=== PATIENT | male | born 1955 | race Caucasian/White ===

== ENCOUNTER → 2020-10-11 08:58 | Outpatient (BNVA) | payer MEDICAID, SELFPAY | PROVIDERS: Visit Provider Internal Medicine Cardiovascular Disease | DX: R00.2 Palpitations (principal); I20.8 Other forms of angina pectoris; I25.2 Old myocardial infarction; Z98.61 Coronary angioplasty status | CPT/HCPCS: 99212 ==

== ENCOUNTER 2020-10-30 10:01 | Emergency (ER) | payer MEDICAID, SELFPAY ==
--- NOTE | 2020-10-30 10:10 | ECG_ITS ---
Test Reason : SYNCOPE Blood Pressure : / mmHG Vent. Rate : 072 BPM Atrial Rate : 072 BPM P-R Int : 192 ms QRS Dur : 096 ms QT Int : 386 ms P-R-T Axes : 045 -08 093 degrees QTc Int : 422 ms Normal sinus rhythm T wave abnormality, consider lateral ischemia Abnormal ECG No previous ECGs available Referred By: Cammie Ballard Electronically Signed By:SHEILA CARTER
--- NOTE | 2020-10-30 10:10 | CT_ITS ---
EXAMINATION: CT BRAIN AND CHEST. CLINICAL INFORMATION: Weakness. COMPARISON: None TECHNIQUE: Chest one view. 5 mm thin axial and reformatted 2 mm thin coronal and sagittal images of brain were obtained. The elbow the sixth 97 FINDINGS: Chest: The lungs are well-expanded and clear of acute process. The heart size and pulmonary vascularity is normal. No gross bony abnormality seen. Brain: There is no acute intra-axial, extra-axial bleed, masses or midline shift. Both lateral ventricles are symmetrical in size and configuration without enlargement. There is no acute infarction in evolution. A small lacunar infarct RIGHT blayne. The lateral ventricles are symmetrical in size, configuration without enlargement. Bone windows reveal no calvarial abnormality. Bilateral paranasal sinuses and mastoid air cells are well-aerated. CT/CT head/brain wo con IMPRESSION: No acute cardiopulmonary process. There is no acute intracranial process seen.
[2020-10-30 10:11] VITALS: BP 126/85; PULSE 74; RESP 10; TEMP 36.8; O2SAT 99; BMI 33.0
--- NOTE | 2020-10-30 10:11 | ED_ITS ---
HPI - Dizziness General Chief Complaint: Headache Stated Complaint: HBS Time Seen by Provider: 10/30/20 10:08 Source: patient and old records reviewed Mode of arrival: other (from cardiac rehab) Limitations: other (very poor historian) History of Present Illness HPI Narrative: patient is DM and did not eat breakfast - his BS was 170 on arrival to the ED MD elicited complaint: dizziness, lightheadedness and other (headache) Onset (ago): minute(s) (just [employer]) Timing: sudden onset Severity: severe Description: room spinning Context: other (was using bike at cardiac rehab) History of similar symptoms: No Exacerbating factors: movement/ambulation and change in body position Relieving factors: remaining still Associated symptoms: nausea, diaphoresis and weakness Related Data Home Medications Medication Instructions Recorded Confirmed amlodipine 5 mg tablet 5 mg PO DAILY 10/11/20 aspirin 81 mg tablet,delayed 81 mg PO DAILY 10/11/20 release atorvastatin 80 mg tablet 80 mg PO DAILY 10/11/20 hydrochlorothiazide 25 mg tablet 25 mg PO DAILY 10/11/20 lisinopril 40 mg tablet 40 mg PO DAILY 10/11/20 metformin 500 mg tablet 500 mg PO DAILY 10/11/20 metoprolol tartrate 100 mg tablet 100 mg PO BID 10/11/20 ticagrelor 90 mg tablet 90 mg PO BID 10/11/20 Allergies Allergy/AdvReac Type Severity Reaction Status Date / Time No Known Allergies Allergy Verified 10/30/20 10:08 Review of Systems Review of Systems: Constitutional : No Fever, No Chills, No Fatigue ENT/Mouth : No sore throat, No Rhinorrhea Eyes: No Eye Pain, No Swelling, No Redness Cardiovascular : No Chest Pain, No SOB, No Dyspnea on Exertion Respiratory : No Cough, No Sputum Gastrointestinal : pos Nausea, No Vomiting, No Diarrhea, No abdominal Pain Genitourinary : No Dysuria, No Urinary Frequency, No Hematuria, Musculoskeletal : No joint pain, No Myalgias, No Joint Swelling Skin : No Skin Lesions, No rash Neuro : No Weakness, No Numbness, pos Dizziness, positive Headache Psych : No Anxiety/Panic, No Depression Heme/Lymph: No Bruising, No Bleeding,No Lymphadenopathy Endocrine : No Polyuria, No Polydipsia All other systems reviewed and are negative PMFSH Past Medical History Attestation statement: The following information was validated with the patient. Medical History ST elevation myocardial infarction (STEMI) of lateral wall Surgical History History of cardiac cath Social History Social History Alcohol intake: never Smoking Status: Never smoker Use of substances other than those prescribed or required for medical reasons: No Advance Directives: Yes Advance Directives on File: Yes Advance Directives Date on File: 08/30/20 Physical Exam Vital Signs: Vital Signs: Last Vital Signs Temp 98.2 F 10/30/20 10:11 Pulse 80 10/30/20 14:00 Resp 14 10/30/20 14:00 BP 126/80 10/30/20 12:12 Pulse Ox 99 10/30/20 14:00 Body Mass Index 33.0 Appearance: Alert. Oriented X3. No acute distress. Eyes: Pupils equal, round and reactive to light. ENT: Pharynx normal. Neck: Normal inspection. Neck supple. CVS: Normal heart rate and rhythm. Pulses normal. Respiratory: No respiratory distress. Breath sounds normal. Abdomen: Soft and nontender. Skin: Skin warm and dry. Normal skin color. Normal skin turgor. Extremities: No lower extremity edema. No calf ttp Neuro: Oriented X 3. No motor deficit. No sensory deficit. CN intact, no drift, dizziness with rotating head but no overt nystagmus NIH Stroke Scale Internal: Initial- Upon Arrival Level of Consciousness: Alert Level of Consciousness Questions: Answers both questions correctly Level of Consciousness Commands: Performs both tasks correctly Best Gaze: Normal Visual: No visual loss Facial Palsy: Normal Motor Arm (Right): No drift Motor Arm (Left): No drift Motor Leg (Right): No drift Motor Leg (Left): No drift Limb Ataxia: Absent Sensory: Normal Best Language: No aphasia Dysarthia: Normal Extinction and Inattention: No abnormality Score: 0 Course Course Course Narrative: 1015am call to [facility] [facility] for old EKG and records from [facility] on repeat exam - flat affect, slow to respond at times but alert and oriented x 3, has neg romberg's test, can do heel to mcmanus bilaterally and walking in a straight line but would occasionally list to the right at times, will need MRI brain to r/o stroke, his score is so low he would not be a candidate for tPa negative, MRI back to baseline, GCS 15 feels fine, discussed with Cardiology reviewed trop and EKGs, stable for DC< patient reports episode resolved, plan for outpatient cardiology follow up MDM - Dizziness MDM Narrative Medical decision making narrative: 65 yo male with DM, CAD s/p stent 5 months ago here with abrupt onset dizziness with room spinning and headache no CP/SOB no focal deficits at this time will need labs, IV zofran, EKG, records from [facility], CT head, dispo per results and findings Lab Data Result diagrams: 10/30/20 10:24 10/30/20 10:24 Labs: Lab Results 10/30/20 10/30/20 10/30/20 Range/Units 10:05 10:24 10:24 WBC 5.5 (4.8-10.8) X10*3/uL RBC 4.58 L (4.60-5.80) X10*6/uL Hgb 13.4 L (14.0-18.0) g/dl Hct 40.7 L (42-52) % MCV 88.9 (80-98) fL MCH 29.3 (27.0-33.0) pg MCHC 32.9 (31.0-36.0) g/dl RDW 14.5 (11.0-16.0) % Plt Count 239 (160-400) X10*3/uL MPV 10.2 (9.4-12.4) fL Immature Gran % (Auto) 0.4 (0.0-0.4) % Neut % (Auto) 64.1 (45-73) % Lymph % (Auto) 26.9 (20-40) % [place] % (Auto) 7.3 (2-11) % Eos % (Auto) 0.9 (0-4) % Baso % (Auto) 0.4 (0-2) % Lymph # (Auto) 1.5 (1.2-4.9) X10*3/uL [place] # (Auto) 0.4 (0.1-1.2) X10*3/uL Eos # (Auto) 0.1 (0.0-0.4) X10*3/uL Baso # (Auto) 0.0 (0.0-0.2) X10*3/uL Abs Immat Gran (auto) 0.02 (0.00-0.03) X10*3/uL Absolute Neuts (auto) 3.5 (2.0-8.3) X10*3/uL Absolute Nucleated RBC 0.000 (0.0-0.012) X10*3/uL Nucleated RBC % (auto) 0.0 (0.0-0.2) /100WBC Sodium 139 (135-145) mmol/L Potassium 3.5 (3.3-5.1) mmol/l Chloride 103 (96-108) mmol/L Carbon Dioxide 25 (22-29) mmol/L Anion Gap 15 (12-20) BUN 16 (9-16) mg/dL Creatinine 1.03 (0.5-1.4) mg/dL Estim Creat Clear Calc 76.2 Estimated GFR > 60 POC Glucose 176 H (60-115) mg/dL Random Glucose 216 H (60-115) mg/dL Calcium 8.8 (8.4-10.2) mg/dL Magnesium 2.0 (1.6-2.6) mg/dL Total Bilirubin 1.0 (0.0-1.0) mg/dL Direct Bilirubin 0.5 (0.0-0.5) mg/dL AST 12 (5-37) U/L ALT 18 (0-40) U/L Alkaline Phosphatase 91 (39-117) U/L Troponin I High Sens (<3.5-35.0) ng/L Total Protein 7.4 (6.5-8.0) g/dL Albumin 4.1 (3.5-5.0) g/dL Lipase 27 (8-78) U/L 10/30/20 10/30/20 Range/Units 10:24 13:24 WBC (4.8-10.8) X10*3/uL RBC (4.60-5.80) X10*6/uL Hgb (14.0-18.0) g/dl Hct (42-52) % MCV (80-98) fL MCH (27.0-33.0) pg MCHC (31.0-36.0) g/dl RDW (11.0-16.0) % Plt Count (160-400) X10*3/uL MPV (9.4-12.4) fL Immature Gran % (Auto) (0.0-0.4) % Neut % (Auto) (45-73) % Lymph % (Auto) (20-40) % [place] % (Auto) (2-11) % Eos % (Auto) (0-4) % Baso % (Auto) (0-2) % Lymph # (Auto) (1.2-4.9) X10*3/uL [place] # (Auto) (0.1-1.2) X10*3/uL Eos # (Auto) (0.0-0.4) X10*3/uL Baso # (Auto) (0.0-0.2) X10*3/uL Abs Immat Gran (auto) (0.00-0.03) X10*3/uL Absolute Neuts (auto) (2.0-8.3) X10*3/uL Absolute Nucleated RBC (0.0-0.012) X10*3/uL Nucleated RBC % (auto) (0.0-0.2) /100WBC Sodium (135-145) mmol/L Potassium (3.3-5.1) mmol/l Chloride (96-108) mmol/L Carbon Dioxide (22-29) mmol/L Anion Gap (12-20) BUN (9-16) mg/dL Creatinine (0.5-1.4) mg/dL Estim Creat Clear Calc Estimated GFR POC Glucose (60-115) mg/dL Random Glucose (60-115) mg/dL Calcium (8.4-10.2) mg/dL Magnesium (1.6-2.6) mg/dL Total Bilirubin (0.0-1.0) mg/dL Direct Bilirubin (0.0-0.5) mg/dL AST (5-37) U/L ALT (0-40) U/L Alkaline Phosphatase (39-117) U/L Troponin I High Sens < 3.5 5.9 D (<3.5-35.0) ng/L Total Protein (6.5-8.0) g/dL Albumin (3.5-5.0) g/dL Lipase (8-78) U/L ECG Data Attestation: I personally reviewed and interpreted this ECG as follows: ECG interpretation date: 10/30/20 ECG interpretation time: 10:22 Interpretation: Rate: 72 Rhythm: NSR [place]: left Normal P waves. Normal JUSTINE. Normal QRS complex. ST T wave : no TITO, inverted in I and aVL, V5-V6 qTC: normal prior studies: unchanged March 2020 The study has been interpreted contemporaneously by me. Discharge Plan Discharge Clinical Impression: Dizziness, Headache Patient Disposition: Home, Self-Care Instructions: Dizziness (ED), Acute Headache (ED) Additional Instructions: return to ED for any worsening symptoms or concerns Prescriptions: No Action amlodipine 5 mg tablet 5 mg PO DAILY RF: 0 lisinopril 40 mg tablet 40 mg PO DAILY RF: 0 metformin 500 mg tablet 500 mg PO DAILY RF: 0 aspirin 81 mg tablet,delayed release (DR/EC) 81 mg PO DAILY RF: 0 atorvastatin 80 mg tablet 80 mg PO DAILY RF: 0 metoprolol tartrate 100 mg tablet 100 mg PO BID RF: 0 hydrochlorothiazide 25 mg tablet 25 mg PO DAILY RF: 0 Brilinta 90 mg tablet 90 mg PO BID RF: 0 Referrals: Christiano López MD [Physician] - 2 days Print Language: [place]
[2020-10-30 10:32] LABS: MANUAL DIFF FLAG NO
[2020-10-30 10:35] LABS: Basophils Percent Auto 0.4 % (0-2); Eosinophils Absolute Auto 0.1 X10*3/uL (0.0-0.4); Eosinophils Percent Auto 0.9 % (0-4); Hematocrit 40.7 % (42-52); Hemoglobin 13.4 g/dl (14.0-18.0); Imm Gran Abs Auto 0.02 X10*3/uL (0.00-0.03); Imm Gran Pct Auto 0.4 % (0.0-0.4); Lymphocytes Absolute Auto 1.5 X10*3/uL (1.2-4.9); Lymphocytes Percent Auto 26.9 % (20-40); Mean Corpuscular HGB Conc 32.9 g/dl (31.0-36.0); Mean Corpuscular Hemoglobin 29.3 pg (27.0-33.0); Mean Corpuscular Volume 88.9 fL (80-98); Mean Platelet Volume 10.2 fL (9.4-12.4); Monocytes Absolute Auto 0.4 X10*3/uL (0.1-1.2); Monocytes Percent Auto 7.3 % (2-11); Neutrophils Absolute Auto 3.5 X10*3/uL (2.0-8.3); Neutrophils Percent Auto 64.1 % (45-73); Platelet Count 239 X10*3/uL (160-400); Red Blood Count 4.58 X10*6/uL (4.60-5.80); Red Cell Distribution Width 14.5 % (11.0-16.0); White Blood Count 5.5 X10*3/uL (4.8-10.8)
[2020-10-30] MEDS: ondansetron HCL 4 MG/2 ML VIAL IVPUSH (10:36)
[2020-10-30] MEDS: 0.9 % Sodium Chloride 500 ML IV (10:36)
[2020-10-30 10:58] LABS: Carbon Dioxide 25 mmol/L (22-29); Chloride 103 mmol/L (96-108); Potassium 3.5 mmol/l (3.3-5.1); Sodium 139 mmol/L (135-145)
[2020-10-30 10:59] LABS: Alanine Aminotransferase 18 U/L (0-40); Albumin Level 4.1 g/dL (3.5-5.0); Alkaline Phosphatase 91 U/L (39-117); Anion Gap 15 (12-20); Aspartate Amino Transferase 12 U/L (5-37); Bilirubin Direct 0.5 mg/dL (0.0-0.5); Blood Urea Nitrogen 16 mg/dL (9-16); Calcium 8.8 mg/dL (8.4-10.2); Creatinine Clr Calc Pharmacy 76.2; Estimated Glomerular Filt Rate > 60; Glucose Random 216 mg/dL (60-115); Lipase 27 U/L (8-78); Total Protein 7.4 g/dL (6.5-8.0)
--- NOTE | 2020-10-30 11:01 | MR_ITS ---
EXAMINATION: MR BRAIN WITHOUT CONTRAST CLINICAL INFORMATION: Weakness. Dizziness. COMPARISON: None. TECHNIQUE: Multiplanar, multisequence imaging of the brain was performed without contrast. FINDINGS: No diffusion abnormalities are identified to suggest an acute infarct. The ventricles are normal in size. No mass effect or midline shift is seen. No extra-axial fluid collections are seen. There are a couple of chronic infarcts in the right gangliocapsular region and inferiorly in the left cerebellar hemisphere. Mild chronic white matter microangiopathic changes noted. There is symmetric T2 hyperintensity in the middle cerebellar peduncles bilaterally. Small chronic lacunar infarcts noted in the dorsal right paramedian aspect of the blayne. There is chronic cortically-based infarct in the right anterior temporal pole. The gradient refocused acquisition demonstrates no pathologic magnetic susceptibility artifact to indicate underlying acute or chronic blood products. The craniovertebral junction, marrow signal, and midline structures are normal. The major intracranial flow voids at the level of the lower [place] of [place] are preserved. The dural venous sinus flow voids are maintained. The mastoid air cells are well aerated. There is a small retention cyst along the floor of the left maxillary sinus. MR/MR head/brain wo con IMPRESSION: Symmetric signal changes in the middle cerebellar peduncles bilaterally without volume loss in the brainstem or cerebellum. Given the presence of a chronic pontine lacunar infarct, findings may represent chronic [place] degeneration. Otherwise, no acute intracranial process. Mild chronic white matter microangiopathy and scattered small chronic infarct.
--- NOTE | 2020-10-30 11:11 | PC.NURSE ---
pt able to trial ambulate w standby assist w steady gait. plan for mri. screening form completed at bedside.
[2020-10-30 11:34] LABS: Glucose, Whole Blood 176 mg/dL (60-115)
--- NOTE | 2020-10-30 11:35 | PC.NURSE ---
taken to mri via stretcher
[2020-10-30 12:12] VITALS: BP 126/80; PULSE 76; RESP 16; O2SAT 99
--- NOTE | 2020-10-30 12:17 | PC.NURSE ---
pt return from mri, vss. awaiting mri results. pt nad lying in stretcher.
[2020-10-30 12:23] LABS: Troponin-I High Sensitivity < 3.5 ng/L (<3.5-35.0)
[2020-10-30 14:00] VITALS: PULSE 80; RESP 14; O2SAT 99
--- NOTE | 2020-10-30 14:00 | PC.NURSE ---
pt family updated in waiting room, pt is resting in stretcher nad. awaiting repeat trop.
[2020-10-30 14:15] LABS: Troponin-I High Sensitivity 5.9 ng/L (<3.5-35.0)
== END 2020-10-30 15:20 | disposition home or self-care (01) ==
PROVIDERS: Emergency Provider Emergency Medicine
DX: R42 Dizziness and giddiness (principal); R51.9 Headache, unspecified; E11.9 Type 2 diabetes mellitus without complications; Z79.84 Long term (current) use of oral hypoglycemic drugs
CPT/HCPCS: 36415; 70450; 70551; 71045; 80048; 80076; 82947; 83690; 83735; 84484; 85025; 93005; 96361; 96374; 99284; 99285; J2405

== ENCOUNTER → 2020-11-07 14:00 | Outpatient (REF) | payer MEDICAID, SELFPAY ==
--- NOTE | 2020-11-07 13:55 | ECG_ITS ---
Hook-up date: 2020-11-07 14:20:00 Duration: 47:59:00 Test Indications: PALPITATIONS Medications: [id number] QRS complexes 2649 Ventricular ectopics which represent 1 % of total QRS comp. 116 Supraventricular ectopics which represent <1 % of total QRS comp. * Paced QRS complexs which represent % of total QRS comp. VENTRICULAR ECTOPY 2593 Isolated 1202 Bigeminal Cycles 24 Couplets 2 Runs 8 Beats in Runs 5 Beats LONGEST at 106 BPM at 13:30:04 2020-11-09 3 Beats FASTEST at 141 BPM at 12:11:18 2020-11-09 SUPRAVENTRICULAR ECTOPY 66 Isolated 8 Couplets 7 Runs 34 Beats in Runs 11 Beats LONGEST at 106 BPM at 06:06:36 2020-11-09 7 Beats FASTEST at 110 BPM at 06:06:31 2020-11-09 HEART RATES * MIN at 03:33:91 -- 80 AVG 127 MAX at 08:30:31 2020-11-09 LONGEST RR 0.8560 secs at 15:26:15 2020-11-07 S-T LEVELS Channel 1 - 128 mm at 14:20:00 2020-11-07 - 128 mm at 14:20:00 2020-11-07 Channel 2 - 128 mm at 14:20:00 2020-11-07 - 128 mm at 14:20:00 2020-11-07 Channel 3 - 128 mm at 03:33:91 -- - 128 mm at 03:33:91 Underlying rhythm is sinus; Average ventricular rate 80/min; Mostly isolated ventricular ectopy with some couplets, bigeminal cycles but no significant runs (1%); Rare supraventricular ectopy with some brief runs; No sustained arrhythmias; Patient did not report any symptoms in the diary Referred By: Christiano López Overread By: SHEILA CARTER
== END ==
LOC: HO.CARD 14:00
PROVIDERS: Visit Provider Internal Medicine Cardiovascular Disease
DX: R00.2 Palpitations (principal)
CPT/HCPCS: 93226

== ENCOUNTER 2021-01-15 09:55 | Emergency (ER) | payer MEDICAID, SELFPAY ==
--- NOTE | ~2021-01-15 | CT_ITS ---
EXAMINATION: CT ABDOMEN AND PELVIS WITHOUT CONTRAST CLINICAL INFORMATION: Left suprapubic pain with question of kidney stone. COMPARISON: None TECHNIQUE: Multidetector volumetric imaging was performed from the superior aspect of the liver through the pubic symphysis. Sagittal and coronal reformatted images were obtained on the technologist's workstation. This CT examination was performed using dose optimization techniques as appropriate, variously including the following: *Automated exposure control *Adjustment of mA and/or kV according to patient size (this includes techniques or standardized protocols for targeted exams where dose is matched to indication/reason for exam; i.e. extremities or head) *Use of iterative reconstruction technique DLP: 697 mGy-cm FINDINGS: LUNG BASES: The visualized lung bases are unremarkable. Some nonspecific dependent mosaic ground-glass changes are present. LIVER, GALLBLADDER, AND BILIARY TREE: The liver is normal in size, shape, and attenuation. No focal hepatic lesion or biliary ductal dilatation is present. Gallbladder contour is irregular and the gallbladder contains some inhomogeneous material. I suspect that the gallbladder contains multiple stones but there is no gallbladder wall thickening, or obvious pericholecystic inflammatory changes. PANCREAS: Unremarkable. SPLEEN: Unremarkable. ADRENAL GLANDS: Unremarkable. KIDNEYS AND URETERS: The kidneys are normal in size, shape, and attenuation. No hydronephrosis, hydroureter, or calculi seen. There is a right upper pole 2.2 cm benign simple cyst present. No solid renal masses are seen. No perinephric stranding. BLADDER: Unremarkable. GASTROINTESTINAL TRACT: The small and large bowel are unremarkable. The appendix is unremarkable. ABDOMINAL WALL: No significant hernia is appreciated. There is a tiny periumbilical hernia containing only fat. LYMPH NODES: Some small left para-aortic lymph nodes are present. No retroperitoneal lymphadenopathy is seen. VASCULAR: Calcific atherosclerotic changes present in the aorta and iliac vessels. No aneurysm is seen. PELVIC VISCERA: There is BPH. The seminal vesicles appear normal. OSSEOUS STRUCTURES: There has been prior spine surgery with pedicular screws at L5-S1 with associated grade 2 anterolisthesis of L5 upon S1. CT/CT abdomen pelvis wo con IMPRESSION: 1. A cause for the suprapubic pain has not been found. 2. Abnormal gallbladder. Ultrasound should be performed for further evaluation. 3. BPH. 4. Benign right renal cyst. 5. Grade 2 anterolisthesis L5 upon S1 status post prior fixation.
[2021-01-15 10:26] VITALS: BP 154/96; PULSE 73; RESP 15; TEMP 36.6; O2SAT 99; BMI 30.4
[2021-01-15 15:42] VITALS: BP 143/94; PULSE 71; RESP 18; TEMP 36.9; O2SAT 98
[2021-01-15] MEDS: 0.9 % Sodium Chloride 1,000 ML 999 ML IV (15:59)
--- NOTE | 2021-01-15 16:00 | PC.NURSE ---
Pt's bladder scanned for 150. He voided 100ml and then was scanned for a PVR of 24. Even after emptying his bladder he c/o pain to his lower abd/pelvis region with palpation. PA aware. IV started and IVF infusing.
[2021-01-15 16:06] LABS: MANUAL DIFF FLAG NO
[2021-01-15 16:07] LABS: Basophils Percent Auto 0.5 % (0-2); Eosinophils Absolute Auto 0.1 X10*3/uL (0.0-0.4); Eosinophils Percent Auto 1.3 % (0-4); Hematocrit 42.4 % (42-52); Imm Gran Abs Auto 0.02 X10*3/uL (0.00-0.03); Imm Gran Pct Auto 0.3 % (0.0-0.4); Lymphocytes Percent Auto 32.2 % (20-40); Mean Corpuscular Hemoglobin 29.2 pg (27.0-33.0); Mean Corpuscular Volume 88.3 fL (80-98); Mean Platelet Volume 10.5 fL (9.4-12.4); Monocytes Absolute Auto 0.6 X10*3/uL (0.1-1.2); Monocytes Percent Auto 8.9 % (2-11); Neutrophils Absolute Auto 3.5 X10*3/uL (2.0-8.3); Neutrophils Percent Auto 56.8 % (45-73); Platelet Count 234 X10*3/uL (160-400); Red Cell Distribution Width 13.4 % (11.0-16.0); White Blood Count 6.2 X10*3/uL (4.8-10.8)
[2021-01-15 16:09] LABS: Glucose Urine UA 250 MG/DL (NEG); Leukocyte Esterase Urine TRACE (NEG); Nitrite Urine POS (NEG); PH 5.5 (5.0-8.0); Specific Gravity - Urine >= 1.030 (1.005-1.025); UACC Culture Trigger YES; Urine Blood TRACE (NEG); Urine Ketones NEG (NEG); Urine Protein NEG (NEG-TRACE)
[2021-01-15 16:13] LABS: Appearance Urine CLOUDY; Color Urine YELLOW
[2021-01-15 16:16] LABS: Prothrombin Time 12.2 SEC (10.8-13.0)
[2021-01-15 16:19] LABS: Partial Thromboplastin Time 32.2 SEC (24.1-38.0)
[2021-01-15 16:28] LABS: Bacteria Urine 4+ /LPF; Mucus Urine 2+ /LPF; Squamous Epithelial Cell Urine 1+ /LPF; WBC Urine TNTC /HPF (0-4)
--- NOTE | 2021-01-15 16:34 | ED_ITS ---
HPI - Abdominal Pain General Chief Complaint: Abdominal Pain Stated Complaint: urinary incontinence,abd pain Time Seen by Provider: 01/15/21 15:28 Source: patient Mode of arrival: ambulatory History of Present Illness HPI narrative: Patient presents to ED for left suprapubic pain for 1 week and 2 episodes of urinary incontinence that occurred 2 days ago. Patient states 2 days ago he felt the urge to urinate and while he running to the bathroom he urinated on himself. Patient states since then able to control his urine. Patient states also some dysuria. Patient denies any blood in urine. Patient states no fever, chills, lower back pain, bowel incontinence, or weakness or paralysis and lower extremities. MD elicited complaint: abdominal pain Related Data Home Medications Medication Instructions Recorded Confirmed amlodipine 5 mg tablet 5 mg PO DAILY 10/11/20 aspirin 81 mg tablet,delayed 81 mg PO DAILY 10/11/20 release atorvastatin 80 mg tablet 80 mg PO DAILY 10/11/20 hydrochlorothiazide 25 mg tablet 25 mg PO DAILY 10/11/20 lisinopril 40 mg tablet 40 mg PO DAILY 10/11/20 metformin 500 mg tablet 500 mg PO DAILY 10/11/20 metoprolol tartrate 100 mg tablet 100 mg PO BID 10/11/20 ticagrelor 90 mg tablet 90 mg PO BID 10/11/20 Previous Rx's Medication Instructions Recorded cefpodoxime 100 mg PO Q12H #14 tab 01/15/21 Allergies Allergy/AdvReac Type Severity Reaction Status Date / Time No Known Allergies Allergy Verified 01/15/21 17:57 Review of Systems Review of Systems Yes all other systems are reviewed and are negative Constitutional: Reports as per HPI and Reports no additional constitutional complaints Eyes: Reports as per HPI and Reports no additional eye complaints Reports system reviewed and no additional complaints, except as documented and Reports as per HPI Cardiovascular: Reports as per HPI and Reports no additional cardiovascular complaints Respiratory: Reports as per HPI and Reports no additional respiratory complaints Gastrointestinal: Reports as per HPI, Reports no additional gastrointestinal complaints and Reports abdominal pain (Left suprapubic abdominal pain) Genitourinary: Reports no additional male genitourinary complaints, Reports as per HPI, Reports dysuria and Reports urinary incontinence (Resolved) Musculoskeletal: Reports no additional musculoskeletal complaints, Reports as per HPI and Denies back pain Reports system reviewed and no additional complaints, except as documented and Reports as per HPI Psychiatric: Reports no additional psychiatric complaints and Reports as per HPI Physical Exam Vital Signs: Vital Signs: Last Vital Signs Temp 98.3 F 01/15/21 17:52 Pulse 78 01/15/21 20:02 Resp 20 01/15/21 20:02 BP 145/100 H 01/15/21 20:02 Pulse Ox 96 01/15/21 17:52 Body Mass Index 30.4 Const: General: cooperative, healthy appearing, comfortable, no acute distress, well developed, alert and awake Orientation/consciousness: patient oriented x3 HENMT: Head: Yes normal to inspection, Yes No palpable skull fracture present, Yes normocephalic, Yes atraumatic, No abrasion, No Fair's sign, No contusion, No cranial bruits, No hematoma, No laceration, No occipital foramen tenderness, No palpable skull fracture, No raccoon eyes, No scalp tenderness, No Temporal artery tenderness present and No periorbital ecchymosis Eyes: General: appearance normal, both eyes and all related structures Neck: Neck: Yes normal visual inspection, Yes full ROM, Yes no lymphadenopathy, Yes no meningeal signs, Yes trachea midline, Yes supple and No tender Chest: Chest palpation & inspection: normal inspection of the chest and normal palpation of entire chest wall Resp: Effort & Inspection: normal respiratory effort and able to speak in complete sentences Cardio: Jugular venous distension: no JVD Heart sounds: S1 normal heart sound present and S2 normal heart sound present GI: Inspection: Yes normal to inspection and No abdominal wall ecchymosis Palpation (GI): Soft to palpation, not firm, Tenderness to palpation present (GI) (Left suprapubic) in the LLQ, no guarding and not rigid : Other: Negative for any active urine from urethra. Negative for any penile lesions. Negative for any testicular pain redness, or testicular swelling. Patient has sensation in saddle area and perineum area.. Patient has good anal tone on rectal exam. General: No CVA tenderness and Yes no CVA tenderness Back/Spine/Pelvis: Back: no CVA tenderness, No CVA tenderness and No back tenderness Skin: General skin exam: no rashes or lesions noted and elasticity normal Neuro: Other: Complete range of motion of all extremities. Negative for any abnormal gait. Negative for any spine tenderness General: patient oriented x3, no meningeal signs and CN's II-XI intact bilaterally Extrem: General: Yes normal to inspection and Yes full ROM Psych: Appearance: grossly normal, well kempt and not disheveled Course Course Course Narrative: Physical exam does not indicate spinal cord compression. History physical exam indicate more UTI possible kidney stone. Patient had bladder scan, UA, and labs drawn Reevaluation(s) Reevaluation #1: Bladder scan: Initial bladder scan shows 150 mL. Postvoid all urine is 24 mL. UA shows a UTI. Will send patient for CT scan machine is no kidney stone Time: 16:51 Reevaluation #2: CT scan negative for any kidney stones or cholecystitis. CT scan shows possible gallstones, but negative for pericholecystic fluid or gallbladder wall thickening. Patient does not have any upper abdominal pain, nausea, or vomiting. Patient can follow-up with outpatient ultrasound for further evaluation of gallbladder. T bili, AST, and ALT came back normal. Patient will be discharged with antibiotics for UTI. Patient given copy of CT scan and UA for follow-up with PCP. Patient informed to return to the ED immediately if he has upper abdominal pain, right upper back pain, green emesis, right upper quadrant pain, fever, chills, hematuria, or any other concerning symptoms. Time: 19:29 MDM - Abdominal Pain MDM Narrative Medical decision making narrative: UTI Lab Data Result diagrams: 01/15/21 15:54 01/15/21 15:54 Labs: Lab Results 01/15/21 01/15/21 01/15/21 Range/Units 15:54 15:54 15:54 WBC 6.2 (4.8-10.8) X10*3/uL RBC 4.80 (4.60-5.80) X10*6/uL Hgb 14.0 (14.0-18.0) g/dl Hct 42.4 (42-52) % MCV 88.3 (80-98) fL MCH 29.2 (27.0-33.0) pg MCHC 33.0 (31.0-36.0) g/dl RDW 13.4 (11.0-16.0) % Plt Count 234 (160-400) X10*3/uL MPV 10.5 (9.4-12.4) fL Immature Gran % (Auto) 0.3 (0.0-0.4) % Neut % (Auto) 56.8 (45-73) % Lymph % (Auto) 32.2 (20-40) % [place] % (Auto) 8.9 (2-11) % Eos % (Auto) 1.3 (0-4) % Baso % (Auto) 0.5 (0-2) % Lymph # (Auto) 2.0 (1.2-4.9) X10*3/uL [place] # (Auto) 0.6 (0.1-1.2) X10*3/uL Eos # (Auto) 0.1 (0.0-0.4) X10*3/uL Baso # (Auto) 0.0 (0.0-0.2) X10*3/uL Abs Immat Gran (auto) 0.02 (0.00-0.03) X10*3/uL Absolute Neuts (auto) 3.5 (2.0-8.3) X10*3/uL Absolute Nucleated RBC 0.000 (0.0-0.012) X10*3/uL Nucleated RBC % (auto) 0.0 (0.0-0.2) /100WBC PT 12.2 (10.8-13.0) SEC INR 1.0 (0.9-1.1) APTT 32.2 (24.1-38.0) SEC Sodium 140 (135-145) mmol/L Potassium 4.3 (3.3-5.1) mmol/L Chloride 101 (96-108) mmol/L Carbon Dioxide 28 (22-29) mmol/L Anion Gap 15 (12-20) BUN 19 H (9-16) mg/dL Creatinine 1.01 (0.5-1.4) mg/dL Estim Creat Clear Calc 79.7 Estimated GFR > 60 Random Glucose 195 H (60-115) mg/dL Calcium 9.9 D (8.4-10.2) mg/dL Total Bilirubin 0.6 (0.0-1.0) mg/dL AST 17 D (5-37) U/L ALT 37 (0-40) U/L Alkaline Phosphatase 121 H D (39-117) U/L Total Protein 7.8 (6.5-8.0) g/dL Albumin 4.3 (3.5-5.0) g/dL Urine Color Urine Appearance Urine pH (5.0-8.0) Ur Specific [place] (1.005-1.025) Urine Protein (NEG-TRACE) MG/DL Urine Glucose (UA) (NEG) MG/DL Urine Ketones (NEG) MG/DL Urine Blood (NEG) Urine Nitrite (NEG) Ur Leukocyte Esterase (NEG) Urine RBC (0) /HPF Urine WBC (0-4) /HPF Ur Squamous Epith Cells /LPF Urine Bacteria /LPF Urine Mucus /LPF 01/15/21 Range/Units 15:54 WBC (4.8-10.8) X10*3/uL RBC (4.60-5.80) X10*6/uL Hgb (14.0-18.0) g/dl Hct (42-52) % MCV (80-98) fL MCH (27.0-33.0) pg MCHC (31.0-36.0) g/dl RDW (11.0-16.0) % Plt Count (160-400) X10*3/uL MPV (9.4-12.4) fL Immature Gran % (Auto) (0.0-0.4) % Neut % (Auto) (45-73) % Lymph % (Auto) (20-40) % [place] % (Auto) (2-11) % Eos % (Auto) (0-4) % Baso % (Auto) (0-2) % Lymph # (Auto) (1.2-4.9) X10*3/uL [place] # (Auto) (0.1-1.2) X10*3/uL Eos # (Auto) (0.0-0.4) X10*3/uL Baso # (Auto) (0.0-0.2) X10*3/uL Abs Immat Gran (auto) (0.00-0.03) X10*3/uL Absolute Neuts (auto) (2.0-8.3) X10*3/uL Absolute Nucleated RBC (0.0-0.012) X10*3/uL Nucleated RBC % (auto) (0.0-0.2) /100WBC PT (10.8-13.0) SEC INR (0.9-1.1) APTT (24.1-38.0) SEC Sodium (135-145) mmol/L Potassium (3.3-5.1) mmol/L Chloride (96-108) mmol/L Carbon Dioxide (22-29) mmol/L Anion Gap (12-20) BUN (9-16) mg/dL Creatinine (0.5-1.4) mg/dL Estim Creat Clear Calc Estimated GFR Random Glucose (60-115) mg/dL Calcium (8.4-10.2) mg/dL Total Bilirubin (0.0-1.0) mg/dL AST (5-37) U/L ALT (0-40) U/L Alkaline Phosphatase (39-117) U/L Total Protein (6.5-8.0) g/dL Albumin (3.5-5.0) g/dL Urine Color YELLOW Urine Appearance CLOUDY Urine pH 5.5 (5.0-8.0) Ur Specific [place] >= 1.030 H (1.005-1.025) Urine Protein NEG (NEG-TRACE) MG/DL Urine Glucose (UA) 250 H (NEG) MG/DL Urine Ketones NEG (NEG) MG/DL Urine Blood TRACE (NEG) Urine Nitrite POS H (NEG) Ur Leukocyte Esterase TRACE H (NEG) Urine RBC 1-4 (0) /HPF Urine WBC TNTC H (0-4) /HPF Ur Squamous Epith Cells 1+ /LPF Urine Bacteria 4+ /LPF Urine Mucus 2+ /LPF Discharge Plan Discharge Clinical Impression: Acute UTI Patient Disposition: Home, Self-Care Instructions: Urinary Tract Infection in Men (ED) Additional Instructions: Return to the ED immediately for any nausea, vomiting, worsening abdominal pain, right upper back pain, right upper quadrant pain, chest pain, shortness of breath, fever, chills, flank pain, gross hematuria, or any other concerning symptoms. Please follow-up with your PCP. Recommend outpatient gallbladder ultrasound. CT scan shows possible gallstones with no signs of cholecystitis Prescriptions: New cefpodoxime 100 mg tablet 100 mg PO Q12H Qty: 14 RF: 0 No Action amlodipine 5 mg tablet 5 mg PO DAILY RF: 0 lisinopril 40 mg tablet 40 mg PO DAILY RF: 0 metformin 500 mg tablet 500 mg PO DAILY RF: 0 aspirin 81 mg tablet,delayed release (DR/EC) 81 mg PO DAILY RF: 0 atorvastatin 80 mg tablet 80 mg PO DAILY RF: 0 metoprolol tartrate 100 mg tablet 100 mg PO BID RF: 0 hydrochlorothiazide 25 mg tablet 25 mg PO DAILY RF: 0 Brilinta 90 mg tablet 90 mg PO BID RF: 0 Print Language: [place] [facility] Past Medical History Medical History HTN (hypertension) IDDM (insulin dependent diabetes mellitus) ST elevation myocardial infarction (STEMI) of lateral wall Surgical History History of cardiac cath Social History Social History Alcohol intake: never Smoking Status: Never smoker Use of substances other than those prescribed or required for medical reasons: No Advance Directives: Yes Advance Directives on File: Yes Advance Directives Date on File: 08/30/20
[2021-01-15 16:49] LABS: Alanine Aminotransferase 37 U/L (0-40); Albumin Level 4.3 g/dL (3.5-5.0); Alkaline Phosphatase 121 U/L (39-117); Anion Gap 15 (12-20); Aspartate Amino Transferase 17 U/L (5-37); Bilirubin Total 0.6 mg/dL (0.0-1.0); Blood Urea Nitrogen 19 mg/dL (9-16); Calcium 9.9 mg/dL (8.4-10.2); Carbon Dioxide 28 mmol/L (22-29); Chloride 101 mmol/L (96-108); Creatinine Clr Calc Pharmacy 79.7; Estimated Glomerular Filt Rate > 60; Glucose Random 195 mg/dL (60-115); Potassium 4.3 mmol/L (3.3-5.1); Sodium 140 mmol/L (135-145); Total Protein 7.8 g/dL (6.5-8.0)
[2021-01-15 17:52] VITALS: BP 131/88; PULSE 70; RESP 18; TEMP 36.8; O2SAT 96
--- NOTE | 2021-01-15 18:10 | PC.NURSE ---
Spoke with daughter Trisha and gave her an update per request of the patient. Trisha [phone]
[2021-01-15 20:02] VITALS: BP 145/100; PULSE 78; RESP 20
== END 2021-01-15 20:08 | disposition home or self-care (01) ==
PROVIDERS: Physician Assistant; Emergency Provider Internal Medicine
DX: N39.0 Urinary tract infection, site not specified (principal); I10 Essential (primary) hypertension; E11.9 Type 2 diabetes mellitus without complications; I25.2 Old myocardial infarction; Z79.4 Long term (current) use of insulin; Z79.82 Long term (current) use of aspirin; Z79.899 Other long term (current) drug therapy
CPT/HCPCS: 36415; 51798; 74176; 80053; 81001; 81003; 85025; 85610; 85730; 87086; 87088; 87186; 96361; 96374; 99284

== ENCOUNTER 2021-02-02 09:05 | Outpatient (REF) | payer MEDICAID, SELFPAY ==
[2021-02-02 11:12] LABS: Hemoglobin 13.7 g/dl (14.0-18.0); Mean Corpuscular HGB Conc 32.6 g/dl (31.0-36.0); Mean Corpuscular Hemoglobin 28.7 pg (27.0-33.0); Mean Corpuscular Volume 88.1 fL (80-98); Mean Platelet Volume 10.7 fL (9.4-12.4); Platelet Count 241 X10*3/uL (160-400); Red Blood Count 4.77 X10*6/uL (4.60-5.80); Red Cell Distribution Width 13.2 % (11.0-16.0); White Blood Count 6.2 X10*3/uL (4.8-10.8)
[2021-02-02 11:22] LABS: Glucose Urine UA 500 MG/DL (NEG); Leukocyte Esterase Urine 1+ (NEG); Nitrite Urine POS (NEG); PH 5.5 (5.0-8.0); Specific Gravity - Urine >= 1.030 (1.005-1.025); Urine Blood 1+ (NEG); Urine Ketones NEG (NEG); Urine Protein TRACE MG/DL (NEG-TRACE)
[2021-02-02 11:25] LABS: Appearance Urine CLOUDY; Color Urine YELLOW
[2021-02-02 11:32] LABS: Bacteria Urine 3+ /LPF; Mucus Urine 1+ /LPF; Squamous Epithelial Cell Urine 1+ /LPF; WBC Urine TNTC /HPF (0-4)
[2021-02-02 11:39] LABS: Microalbum/Creatinine Ratio Ur 20.2 ug/mg cr
[2021-02-02 11:43] LABS: Alanine Aminotransferase 21 U/L (0-40); Albumin Level 4.2 g/dL (3.5-5.0); Alkaline Phosphatase 111 U/L (39-117); Anion Gap 13 (12-20); Aspartate Amino Transferase 12 U/L (5-37); Bilirubin Total 0.5 mg/dL (0.0-1.0); Blood Urea Nitrogen 15 mg/dL (9-16); Carbon Dioxide 28 mmol/L (22-29); Chloride 105 mmol/L (96-108); Cholesterol 119 mg/dL; Estimated Glomerular Filt Rate > 60; Glucose Fasting 236 mg/dL (60-99); HDL Cholesterol 36 mg/dL; LDL Cholesterol Calculated 69 mg/dl; Potassium 3.9 mmol/L (3.3-5.1); Sodium 142 mmol/L (135-145); Total Protein 7.5 g/dL (6.5-8.0); Triglycerides 73 mg/dL
[2021-02-02 11:46] LABS: Estimated Average Glucose 272 mg/dL; Hemoglobin A1c % 11.1 %
== END 2021-02-02 09:06 | disposition home or self-care (01) ==
LOC: HO.HMGCLDS 09:05
PROVIDERS: Visit Provider Internal Medicine
DX: E11.9 Type 2 diabetes mellitus without complications (principal); E78.5 Hyperlipidemia, unspecified; I10 Essential (primary) hypertension; Z98.61 Coronary angioplasty status
CPT/HCPCS: 36415; 80053; 80061; 81001; 82043; 83036; 85027

== ENCOUNTER → 2021-02-15 10:43 | Outpatient (BNVA) | payer MEDICAID, SELFPAY | PROVIDERS: PCP Internal Medicine; Visit Provider Internal Medicine Cardiovascular Disease | DX: I20.8 Other forms of angina pectoris (principal); I10 Essential (primary) hypertension; Z98.61 Coronary angioplasty status | CPT/HCPCS: 99212 ==

== ENCOUNTER 2021-09-11 08:48 | Outpatient (REF) | payer MEDICAID, SELFPAY ==
[2021-09-11 12:01] LABS: Hemoglobin A1c % > 14.0 %
[2021-09-11 12:06] LABS: Appearance Urine CLOUDY; Color Urine YELLOW; Glucose Urine UA >=1000 MG/DL (NEG); Leukocyte Esterase Urine NEG (NEG); Nitrite Urine POS (NEG); UACC Culture Trigger YES; Urine Blood TRACE (NEG); Urine Ketones NEG (NEG); Urine Protein NEG (NEG-TRACE)
[2021-09-11 12:14] LABS: Creatinine Urine 69.13 mg/dL; Microalbum/Creatinine Ratio Ur 78.1 ug/mg cr
[2021-09-11 12:33] LABS: Alanine Aminotransferase 20 U/L (0-40); Albumin Level 4.2 g/dL (3.5-5.0); Alkaline Phosphatase 140 U/L (39-117); Anion Gap 15 (12-20); Aspartate Amino Transferase 13 U/L (5-37); Bilirubin Total 0.5 mg/dL (0.0-1.0); Blood Urea Nitrogen 14 mg/dL (9-16); Calcium 10.2 mg/dL (8.4-10.2); Carbon Dioxide 27 mmol/L (22-29); Chloride 101 mmol/L (96-108); Cholesterol 100 mg/dL; Estimated Glomerular Filt Rate > 60; HDL Cholesterol 39 mg/dL; LDL Cholesterol Calculated 47 mg/dl; Potassium 3.9 mmol/L (3.3-5.1); Sodium 139 mmol/L (135-145); Total Protein 7.5 g/dL (6.5-8.0); Triglycerides 72 mg/dL
[2021-09-11 12:35] LABS: Bacteria Urine 2+ /LPF; Squamous Epithelial Cell Urine 1+ /LPF; UACC CULT YES
[2021-09-11 12:36] LABS: Mucus Urine 2+ /LPF
[2021-09-11 13:12] LABS: Glucose Fasting 380 mg/dL (60-99)
== END 2021-09-11 08:49 | disposition home or self-care (01) ==
LOC: HO.HMGCLDS 08:48
PROVIDERS: PCP Internal Medicine; Visit Provider Internal Medicine
DX: I10 Essential (primary) hypertension (principal); E78.5 Hyperlipidemia, unspecified; E11.9 Type 2 diabetes mellitus without complications; Z98.61 Coronary angioplasty status
CPT/HCPCS: 36415; 80053; 80061; 81001; 82043; 83036; 87086; 87088; 87186

== ENCOUNTER 2023-02-24 06:21 | Outpatient (REF) | payer MEDICAID, SELFPAY ==
[2023-02-24 06:23] LABS: MANUAL DIFF FLAG NO
[2023-02-24 06:54] LABS: Basophils Percent Auto 0.3 % (0-2); Eosinophils Absolute Auto 0.2 X10*3/uL (0.0-0.4); Eosinophils Percent Auto 2.3 % (0-4); Hematocrit 40.1 % (42.0-52.0); Hemoglobin 13.2 g/dl (14.0-18.0); Imm Gran Abs Auto 0.02 X10*3/uL (0.00-0.03); Imm Gran Pct Auto 0.3 % (0.0-0.4); Lymphocytes Absolute Auto 1.6 X10*3/uL (1.2-4.9); Lymphocytes Percent Auto 22.1 % (20-40); Mean Corpuscular HGB Conc 32.9 g/dl (31.0-36.0); Mean Corpuscular Volume 88.1 fL (80.0-98.0); Mean Platelet Volume 10.9 fL (9.4-12.4); Monocytes Absolute Auto 0.7 X10*3/uL (0.1-1.2); Monocytes Percent Auto 10.2 % (2-11); Neutrophils Absolute Auto 4.7 x10*3/uL (2.0-8.3); Neutrophils Percent Auto 64.8 % (45-73); Platelet Count 226 X10*3/uL (160-400); Red Blood Count 4.55 X10*6/uL (4.60-5.80); Red Cell Distribution Width 13.2 % (11.0-16.0); White Blood Count 7.3 X10*3/uL (4.8-10.8)
[2023-02-24 07:06] LABS: Alanine Aminotransferase 19 U/L (0-40); Albumin Level 3.6 g/dL (3.5-5.0); Alkaline Phosphatase 92 U/L (39-117); Anion Gap 13 (12-20); Aspartate Amino Transferase 24 U/L (5-37); Bilirubin Total 0.6 mg/dL (0.0-1.0); Blood Urea Nitrogen 14 mg/dL (9-16); Calcium 8.6 mg/dL (8.4-10.2); Carbon Dioxide 26 mmol/L (22-29); Chloride 101 mmol/L (96-108); Estimated Glomerular Filt Rate > 60; Glucose Random 177 mg/dL (60-115); Potassium 4.4 mmol/L (3.3-5.1); Sodium 136 mmol/L (135-145); Total Protein 6.7 g/dL (6.5-8.0)
== END 2023-02-24 06:22 | disposition home or self-care (01) ==
LOC: HO.MMNH1L 06:21
PROVIDERS: Visit Provider Family Medicine
DX: E11.9 Type 2 diabetes mellitus without complications (principal); I10 Essential (primary) hypertension
CPT/HCPCS: 36415; 80053; 85025

== ENCOUNTER 2023-03-03 05:59 | Outpatient (REF) | payer MEDICAID, SELFPAY ==
[2023-03-03 05:53] LABS: MANUAL DIFF FLAG NO
[2023-03-03 06:15] LABS: Basophils Percent Auto 0.6 % (0-2); Eosinophils Absolute Auto 0.1 X10*3/uL (0.0-0.4); Eosinophils Percent Auto 1.4 % (0-4); Hematocrit 39.6 % (42.0-52.0); Hemoglobin 12.9 g/dl (14.0-18.0); Imm Gran Abs Auto 0.02 X10*3/uL (0.00-0.03); Imm Gran Pct Auto 0.3 % (0.0-0.4); Lymphocytes Percent Auto 27.1 % (20-40); Mean Corpuscular HGB Conc 32.6 g/dl (31.0-36.0); Mean Corpuscular Hemoglobin 28.7 pg (27.0-33.0); Mean Corpuscular Volume 88.2 fL (80.0-98.0); Mean Platelet Volume 10.2 fL (9.4-12.4); Monocytes Absolute Auto 0.5 X10*3/uL (0.1-1.2); Monocytes Percent Auto 7.2 % (2-11); Neutrophils Absolute Auto 4.6 x10*3/uL (2.0-8.3); Neutrophils Percent Auto 63.4 % (45-73); Platelet Count 303 X10*3/uL (160-400); Red Blood Count 4.49 X10*6/uL (4.60-5.80); White Blood Count 7.2 X10*3/uL (4.8-10.8)
[2023-03-03 06:47] LABS: Anion Gap 14 (12-20); Blood Urea Nitrogen 17 mg/dL (9-16); Carbon Dioxide 27 mmol/L (22-29); Chloride 104 mmol/L (96-108); Estimated Glomerular Filt Rate > 60; Glucose Random 253 mg/dL (60-115); Potassium 4.1 mmol/L (3.3-5.1); Sodium 141 mmol/L (135-145)
== END 2023-03-03 06:00 | disposition home or self-care (01) ==
LOC: HO.MMNH1L 05:59
PROVIDERS: Visit Provider Family Medicine
DX: I10 Essential (primary) hypertension (principal)
CPT/HCPCS: 36415; 80048; 85025

== ENCOUNTER 2023-03-10 06:05 | Outpatient (REF) | payer MEDICARE, MEDICAID, SELFPAY ==
[2023-03-10 05:57] LABS: MANUAL DIFF FLAG NO
[2023-03-10 07:00] LABS: Basophils Percent Auto 0.5 % (0-2); Eosinophils Absolute Auto 0.1 X10*3/uL (0.0-0.4); Eosinophils Percent Auto 1.8 % (0-4); Hematocrit 40.5 % (42.0-52.0); Hemoglobin 13.1 g/dl (14.0-18.0); Imm Gran Abs Auto 0.01 X10*3/uL (0.00-0.03); Imm Gran Pct Auto 0.2 % (0.0-0.4); Lymphocytes Absolute Auto 1.8 X10*3/uL (1.2-4.9); Mean Corpuscular HGB Conc 32.3 g/dl (31.0-36.0); Mean Corpuscular Hemoglobin 28.7 pg (27.0-33.0); Mean Corpuscular Volume 88.8 fL (80.0-98.0); Monocytes Absolute Auto 0.6 X10*3/uL (0.1-1.2); Monocytes Percent Auto 10.4 % (2-11); Neutrophils Absolute Auto 3.5 x10*3/uL (2.0-8.3); Neutrophils Percent Auto 57.1 % (45-73); Platelet Count 303 X10*3/uL (160-400); Red Blood Count 4.56 X10*6/uL (4.60-5.80); White Blood Count 6.1 X10*3/uL (4.8-10.8)
[2023-03-10 07:46] LABS: Anion Gap 14 (12-20); Blood Urea Nitrogen 15 mg/dL (9-16); Calcium 8.8 mg/dL (8.4-10.2); Carbon Dioxide 25 mmol/L (22-29); Chloride 102 mmol/L (96-108); Estimated Glomerular Filt Rate > 60; Glucose Random 266 mg/dL (60-115); Potassium 4.4 mmol/L (3.3-5.1); Sodium 137 mmol/L (135-145)
== END 2023-03-10 06:06 | disposition home or self-care (01) ==
LOC: HO.MMNH1L 06:05
PROVIDERS: Visit Provider Family Medicine
DX: I10 Essential (primary) hypertension (principal)
CPT/HCPCS: 36415; 80048; 85025

== ENCOUNTER 2024-01-29 14:53 | Outpatient (AMB) | payer MEDICARE, MEDICAID, SELFPAY ==
--- NOTE | 2024-01-29 15:06 | A.SPINEOV_ITS ---
Intake Intake Visit Reasons: LBP Intake Note: Mr. Mcknight is here today c/o Low back pain. Senior Customer Service Representative Required: Yes Senior Customer Service Representative Name: tablet Allergies No Known Allergies Allergy (Verified 09/19/21 13:58) Assessment & Plan Assessment & Plan (1) Lumbar degenerative disc disease: Code(s): M51.36 - Other intervertebral disc degeneration, lumbar region Plan Mr Roxanna Odonnell is about 1 year out from his trans [place] approach for L5-S1 revision of fusion surgery. He is here with his daughter today who is helping interpret, tells me that before surgery he was wheelchair bound but that he is now walking and is better than he was before surgery. Right after surgery however he developed a weakness of his left hip flexion with numbness into his anterior lateral thigh the never got better. There is a component of pain in his left foot but the primary symptom he is presenting with his weakness and numbness. It limits his ability to walk to some degree. Going up and down stairs can be difficult as his leg will feel like it is going to give out on him. There is no radicular symptom coming from the back down the leg. On my exam he does have about a 3/5 weakness of the iliopsoas and maybe some subtle weakness of the quadriceps. He was difficult to examine due to lack of cooperation at times. The may have also been some subtle weakness of his tibialis as well. Again his cooperation was not optimal. Reflexes were 2+ and symmetric and there was no clonus. At this time I do not have an explanation for the symptoms as the nerve roots we were working on were much further below in the dermatomal and myotomal distribution where would expect his symptoms to originate from. That would be something higher up in the upper lumbar or maybe thoracic region. He has a poorly-controlled diabetic so we may also be talking about a polyneuropathy or diabetic amyotrophy as an alternate explanation. I would like to start with a lumbar spine MRI and plain films and re-evaluate after that. Total amount of time spent in this visit was 20 minutes in discussion of symptoms, order imaging and subsequent plan of care Angel Amaya MD,PhD [facility] Orders: Orders XR lumbar spine 4V min Today M51.36 - Other intervertebral disc degeneration, lumbar region MR lumbar spine wo con Today M51.36 - Other intervertebral disc degeneration, lumbar region Coding Level of Care Code Est Pt Level 3 (12981) Diagnoses Lumbar degenerative disc disease M51.36
== END 2024-01-29 15:23 | disposition home or self-care (01) ==
PROVIDERS: PCP Internal Medicine; Visit Provider Physician Assistant
DX: M51.36 Other intervertebral disc degeneration, lumbar region (principal)
CPT/HCPCS: 99213

== ENCOUNTER 2024-01-29 14:53 | Outpatient (REF) | payer MEDICARE, MEDICAID, SELFPAY ==
--- NOTE | ~2024-01-29 | XR_ITS ---
EXAMINATION: XR LUMBOSACRAL SPINE WITH OBLIQUES CLINICAL INFORMATION: Intervertebral disc degeneration lumbar region. COMPARISON: CT abdomen and pelvis of 01/15/2021. TECHNIQUE: 3 views of the lumbar spine including AP, neutral and flexion views. FINDINGS: Redemonstration of posterior fixation with bilateral rods, pedicular screws and disc device at L5-S1 with associated grade 2 anterolisthesis of L5 on S1. Hardware appears intact. Moderate multilevel spondylosis in the remainder of the lumbar spine. XR/XR lumbar spine 4V min IMPRESSION: 1. Redemonstration of posterior fixation with bilateral rods, pedicular screws and disc device at L5-S1 with associated grade 2 anterolisthesis of L5 on S1. Hardware appears intact. 2. Moderate multilevel spondylosis in the remainder of the lumbar spine.
== END 2024-01-29 14:54 | disposition home or self-care (01) ==
LOC: HO.HOSX 14:53
PROVIDERS: PCP Internal Medicine; Visit Provider Physician Assistant
DX: M51.36 Other intervertebral disc degeneration, lumbar region (principal)
CPT/HCPCS: 72110; 99212

== ENCOUNTER 2024-03-30 19:20 | Outpatient (REF) | payer MEDICARE, MEDICAID, SELFPAY ==
--- NOTE | ~2024-03-30 | MR_ITS ---
EXAMINATION: MR LUMBAR SPINE WITHOUT CONTRAST CLINICAL INFORMATION: Low back pain. Left lower extremity pain. COMPARISON: Lumbar spine radiographs 01/29/2024. CT abdomen and pelvis 01/15/2021. TECHNIQUE: MRI of the lumbar spine was obtained using routine sequences without contrast. FINDINGS: There are chronic postoperative changes of a posterior spinal fusion with a transpedicular hardware extending from L5 to S1. There is grade 2 anterolisthesis of L5 on S1. Slight grade 1 retrolisthesis of L4 on L5. Vertebral body heights are preserved. Mixed type I and type II degenerative endplate changes at L5-S1. There is disc desiccation at L3-L4 and L4-L5 without substantial loss of intervertebral disc height. The tip of the conus medullaris is located at L1-L2. No mass effect on the conus. Visualized distal cord signal intensity is normal. At L1-L2 and L2-L3 the annular contours are normal. No canal or neuroforaminal compromise at these 2 levels. At L3-L4 there is a slightly bulging disc. Bilateral facet degenerative change. No canal stenosis. No mass effect on the traversing or foraminal nerve roots. At L4-L5 there is a diffusely bulging disc. Bilateral facet degenerative change. No canal stenosis. Partial effacement of the perineural fat with mild mass effect on both L4 foraminal nerve roots, greater on the left. At L5-S1 there are postlaminectomy changes. The canal is decompressed. Moderate compression of both L5 foraminal nerve roots. Limited visualization of the retroperitoneal anatomy reveals no abnormal finding. Psoas and paraspinal groups are symmetric. MR/MR lumbar spine wo con IMPRESSION: There are chronic postoperative changes of a posterior spinal fusion with a transpedicular hardware construct extending from L5 to S1. There is grade 2 anterolisthesis of L5 on S1. Slight grade 1 retrolisthesis of L4 on L5. No canal stenosis. There is moderate compression of both L5 foraminal nerve roots related to degenerative changes at L5-S1. Mild mass effect on both L4 foraminal nerve roots related to degenerative changes at L4-L5.
== END 2024-03-30 19:21 | disposition home or self-care (01) ==
LOC: HO.MRI 19:20
PROVIDERS: PCP Internal Medicine; Visit Provider Physician Assistant
DX: M51.36 Other intervertebral disc degeneration, lumbar region (principal)
CPT/HCPCS: 72148